=== PATIENT | female | born 1950 | race Asian ===

== ENCOUNTER 2024-12-25 10:19 | Inpatient (IN) | payer MEDICARE ==
[~2024-12-25] VITALS: Ht 167.6 cm; Wt 71.7 kg
[~2024-12-25 10:19] MED LIST: ASPIRIN/SOD BICARB/CITRIC ACID 324MG TAB EFF ONE
[2024-12-25] MEDS: SODIUM CHLORIDE 0.45% 500 ML IV ONE (11:27)
[2024-12-25] MEDS ORDERED: PRAV40TA58 PO (11:28)
[2024-12-25] MEDS ORDERED: LOSA50TA41 PO (11:28)
[2024-12-25] MEDS ORDERED: EZET10TA81 PO (11:28)
[2024-12-25] MEDS ORDERED: AMLO5TAB88 PO (11:30)
[2024-12-25] MEDS ORDERED: COLC0.6C3 PO (11:30)
[2024-12-25] MEDS ORDERED: SEMA3TAB4 PO (11:30)
[2024-12-25] MEDS ORDERED: HEPARIN 1000 UNITS/ML 10ML ONE (11:34)
[2024-12-25] MEDS ORDERED: IODIXANOL 320MG/ML 100 ML BOTTLE IV ONE ×2 (11:34→12:32)
[2024-12-25] MEDS ORDERED: LIDOCAINE HCL 1% 20ML VIAL ONE (11:34)
[2024-12-25] MEDS ORDERED: FENTANYL CITRATE/PF 50MCG/ML 2ML VIAL ONE (11:42)
[2024-12-25] MEDS ORDERED: ASPIRIN/SOD BICARB/CITRIC ACID 324MG TAB EFF ONE (11:42)
[2024-12-25] MEDS ORDERED: MIDAZOLAM HCL 2 MG/2 ML VIAL ONE (11:43)
[2024-12-25] MEDS ORDERED: CLOPIDOGREL 75MG TABLET ONE (12:43)
[2024-12-25] MEDS ORDERED: HYDRALAZINE 20MG/ML VIAL ONE (12:46)
[2024-12-25] MEDS ORDERED: MORPHINE SULFATE 2 MG/ML INJ (NOT FOR IM USE) IV PRN (13:00)
[2024-12-25] MEDS: CLOPIDOGREL 75MG TABLET PO NR (13:00)
[2024-12-25] MEDS ORDERED: ATROPINE SULFATE 1MG/10ML SYR IV PRN (13:00)
[2024-12-25] MEDS ORDERED: ONDANSETRON HCL 4MG/2ML INJ IV PRN (13:00)
[2024-12-25 13:33] VITALS: BP 150/72; PULSE 79; RESP 14; TEMP 36.8
[2024-12-25 13:40] VITALS: BP 150/72; PULSE 77; RESP 16; TEMP 36.7; O2SAT 98
[2024-12-25] MEDS: SODIUM CHLORIDE 0.45% 1,000 ML IV NR (14:00)
[2024-12-25] MEDS: LOSARTAN 50 MG TABLET PO SCH (14:30)
[2024-12-25 16:00] VITALS: BP 124/86; PULSE 85; RESP 18; TEMP 36.7; O2SAT 97
[2024-12-25] MEDS: AMLODIPINE 5MG TABLET PO NR (17:12)
[2024-12-25 20:00] VITALS: BP 142/75; PULSE 79; RESP 20; TEMP 36.6; O2SAT 96
[2024-12-25] MEDS: ACETAMINOPHEN 325MG TABLET PO PRN (21:35)
[2024-12-26] VITALS: BP 160/84; PULSE 76; RESP 20; TEMP 36.3; O2SAT 96
[2024-12-26 04:00] VITALS: BP 148/78; PULSE 72; RESP 18; TEMP 36.3; O2SAT 96
[2024-12-26 06:32] LABS: BASOPHILS % 0.6 % (0.0-2.0); EOSINOPHILS % 8.3 % (0.0-5.0); HEMATOCRIT. 38.1 % (36.0-48.0); HEMOGLOBIN. 12.8 g/dL (12.0-16.0); LYMPHOCYTES % 30.5 % (20.0-50.0); MEAN CORPUSCULAR HEMOGLOBIN 30.5 pg (28.0-32.0); MEAN CORPUSCULAR HGB CONC 33.6 g/dL (31.0-37.0); MEAN CORPUSCULAR VOLUME 90.9 fL (81.0-99.0); MEAN PLATELET VOLUME 7.3 fl (7.4-10.4); MONOCYTES % 6.1 % (2.0-8.0); NEUTROPHILS % 54.5 % (40.0-76.0); PLATELET 261 x1000/uL (130-400); RED BLOOD CELL COUNT 4.19 mill/uL (4.2-5.4); RED CELL DISTRIBUTION WIDTH 13.4 % (11.6-14.6); WHITE BLOOD COUNT 6.9 x1000/uL (4.5-11.0)
[2024-12-26 06:45] LABS: CARBON DIOXIDE 25 mEq/L (21-32); CHLORIDE 107 mEq/L (98-107); POTASSIUM 4.1 mEq/L (3.5-5.1); SODIUM 141 mEq/L (136-145)
[2024-12-26 06:47] LABS: CALCIUM 9.5 mg/dL (8.7-10.4)
[2024-12-26 06:50] LABS: CREATININE 0.6 mg/dL (0.6-1.0)
[2024-12-26 06:51] LABS: GLUCOSE 122 mg/dL (70-105); UREA NITROGEN BLOOD 12 mg/dL (9-23)
[2024-12-26 07:23] VITALS: BP 148/78; PULSE 74; TEMP 98; O2SAT 95
[2024-12-26 08:00] VITALS: BP 163/82; PULSE 77; RESP 19; TEMP 36.6; O2SAT 97
[2024-12-26] MEDS: ASPIRIN 81MG TABLET PO SCH (08:27)
[2024-12-26] MEDS: CLOPIDOGREL 75MG TABLET PO SCH (08:28)
[2024-12-26] MEDS: COLCHICINE 0.6MG TABLET PO SCH (08:28)
[2024-12-26] MEDS: AMLODIPINE 5MG TABLET PO SCH (08:28)
[2024-12-26] MEDS: AMLODIPINE 5MG TABLET PO NR (09:22)
[2024-12-26 09:43] VITALS: BP 135/77; PULSE 77; TEMP 97.5; O2SAT 97
== END 2024-12-26 10:05 | disposition home or self-care (01) | DRG 322 ==
LOC: CCL 10:19 → 3WST 10:20
PROVIDERS: ADMIT Specialist; ATTEND Specialist
PROC: 027034Z Dilation of Coronary Artery, One Artery with Drug-eluting Intraluminal Device, Percutaneous Approach (ICD-10-PCS; principal; 2024-12-25)
PROC: B2111ZZ Fluoroscopy of Multiple Coronary Arteries using Low Osmolar Contrast (ICD-10-PCS; 2024-12-25)
PROC: 4A023N7 Measurement of Cardiac Sampling and Pressure, Left Heart, Percutaneous Approach (ICD-10-PCS; 2024-12-25)
PROC: 4A033BC Measurement of Arterial Pressure, Coronary, Percutaneous Approach (ICD-10-PCS; 2024-12-25)
DX: I25.10 Atherosclerotic heart disease of native coronary artery without angina pectoris (principal); I10 Essential (primary) hypertension; E78.5 Hyperlipidemia, unspecified; Z79.899 Other long term (current) drug therapy
CPT/HCPCS: 36415; 80048; 82962; 85025; 85347; 87340; 92928; 93005; 93454; 93571; A4606; C1769; C1874; C1887; C1893; J0360; J1644; J2250; J3010; J3490; Q9967